=== PATIENT | female | born 1945 | race Caucasian/White ===

== ENCOUNTER 2018-12-10 18:43 | Inpatient (IN) ==
--- NOTE | 2018-12-10 20:08 | Diag Imaging Result Doc PS360 ---
EXAM: CHEST-2 VIEWS 12/10/2018 HISTORY: productive cough copd TECHNIQUE: PA and lateral chest COMMENT: There are bilaterally calcified breast implants. There are calcified aorticopulmonary window nodes. There is no evidence of acute cardiac or pulmonary disease and compared to 07/31/2018 there has been no significant change. IMPRESSION: No evidence of acute disease. Electronically signed by Jamshid Rosales 12/10/2018 8:05 PM
[2018-12-10] MEDS ORDERED: SOLU-MEDROL IV ONE (20:35)
[2018-12-10] MEDS ORDERED: DUONEB (A & A) INH ONE (20:35)
[2018-12-10] MEDS ORDERED: LEVAQUIN 750 MG/D5W 750 MG/150 ML IVPB IV ONE (20:36)
--- NOTE | 2018-12-10 20:38 | PROVIDER DOCUMENTATION ---
HPI-Respiratory General - General Chief Complaint: Cough Stated Complaint: SOB Time Seen by Provider: 12/10/18 20:24 Source: patient, family Allergies/Adverse Reactions: Patient Allergies Allergy/AdvReac Type Severity Reaction Status Date / Time cefuroxime axetil * Allergy Severe ANAPHYLAXIS Verified 05/10/17 21:58 [From Ceftin] codeine Allergy Severe ANAPHYLAXIS Verified 05/10/17 21:58 Penicillins Allergy ANAPHYLAXIS Verified 12/01/17 19:49 Home Medications: Home Medication List Medication Instructions Recorded Confirmed Last Taken Type Clonazepam [Klonopin] 0.5 mg PO Q8H PRN PRN 10/22/13 05/10/17 05/10/17 History Fluticasone/Salmeterol [Advair 1 puff INH BID 10/22/13 05/10/17 05/10/17 History 500-50 Diskus] Albuterol Sulfate Inhaler 8 gm INH PRN PRN 04/16/14 05/10/17 05/10/17 History [Ventolin Hfa] Trazodone [Desyrel] 100 mg PO QHS 04/16/14 05/10/17 05/10/17 History Oxycodone HCl [Oxycontin] 40 mg PO BID 06/17/15 05/10/17 05/10/17 History Baicalin/Catechin [Limbrel 500 mg 500 mg PO BID 09/13/15 05/10/17 05/10/17 History Capsule] Fluoxetine HCl [Prozac] 40 mg PO DAILY 09/13/15 05/10/17 05/10/17 History Furosemide [Lasix] 40 mg PO DAILY 09/13/15 05/10/17 05/10/17 History Potassium Chloride 1 tab PO DAILY 09/13/15 05/10/17 05/10/17 History Budesonide [Pulmicort] 0.5 mg INH RTBID #28 neb 05/01/17 05/10/17 05/10/17 Rx Levofloxacin [Levaquin] 750 mg PO DAILY #7 tablet 05/01/17 05/10/17 05/10/17 Rx Doxycycline 100 mg PO BID #20 tablet 05/10/17 Unknown Rx Wheelchair 1 ea DIRECTED #1 ea 12/01/17 Unknown Rx - History of Present Illness-Resp Nature of Presenting Problem: reports pt has had sob and right chest pain for 4 days now. and constant cough. she has taken all the copd medicine which has not relievign her symptoms. rightsided chest pain persists. says she has productive cough Review of Systems - Adult - REVIEW OF SYSTEMS - ADULT Constitutional: reports: no symptoms reported Eyes: reports: no symptoms reported Ears, Nose, Mouth & Throat: reports: no symptoms reported Cardiovascular: reports: no symptoms reported Respiratory: reports: no symptoms reported Gastrointestinal: reports: no symptoms reported Genitourinary: reports: no symptoms reported Musculoskeletal: reports: no symptoms reported Integumentary: reports: no symptoms reported Neurological: reports: no symptoms reported Psychiatric: reports: no symptoms reported Endocrine: reports: no symptoms reported Hematologic/Lymphatic: reports: no symptoms reported Allergic/Immunologic: reports: no symptoms reported All Other Systems: Reviewed and Negative Past History - Adult - PAST MEDICAL HISTORY-ADULT Review of Records: reports: Old Records Reviewed, Nursing Assessment Review, Medications Reviewed, Social history reviewed & non-contributory. Major Childhood Illnesses: reports: denies history Cardiovascular: reports: HTN Respiratory: reports: asthma, COPD, sleep apnea Gastrointestinal: reports: GERD Obstetrical/Gynecological: reports: denies history Genitourinary: reports: denies history Musculoskeletal: reports: denies history Neurological: reports: headaches/migraines Psychiatric: reports: depression Endocrine/Immune: reports: denies history Other Conditions: reports: denies history - PRIOR SURGERIES/PROCEDURES Surgical/Procedure History: reports: hysterectomy, BTL, joint replacement - IMMUNIZATION STATUS Childhood Immunizations: See Nurse Assessment Flu Vaccine: See Nurse Assessment - FAMILY HISTORY Family History: HTN - SOCIAL HISTORY Smoking: quit greater than 1 year Substance Use: none/never Alcohol Use Frequency: never Living Situation: family Physical Exam-General - PHYSICAL EXAM-ADULT Initial Vital Signs Reviewed: Yes - CONSTITUTIONAL General Appearance: appears well, alert, no apparent distress - EYES Eyes: PERRL/EOMI, pink conjunctivae - HEAD, EARS, NOSE, MOUTH & THROAT HENMT: normocephalic/atraumatic, moist mucous membranes, normal ENT inspection - NECK Neck: non-tender, full range of motion - RESPIRATORY Respiratory: chest non-tender, crackles, wheezing, other (coughing) - CARDIOVASCULAR Cardiovascular: normal peripheral pulses, regular rate, rhythm, no edema - GASTROINTESTINAL (ABDOMEN) Abdominal Exam: normal bowel sounds, non tender, soft - MUSCULOSKELETAL Back Exam: normal inspection, no CVA tenderness, no vertebral tenderness Extremity: normal range of motion, non-tender, normal gait - SKIN Integumentary: normal color, normal turgor, warm/dry - NEUROLOGIC Neurologic: grossly normal, no motor/sensory deficits - PSYCHIATRIC Psych/Mental Status: normal mood/affect, normal thought content, normal thought process, oriented x 3 - HEART Score HEART Score: History: Slightly Suspicious HEART Score: ECG: Non-Specific Repolarization Disturbance/LBBB/PM HEART Score: Age: > or = 65 Years HEART Score: Risk Factors for Atherosclerotic Disease: > or = 3 Risk Factors or History of Atherosclerotic Disease HEART Score: Troponin: < or = Normal Limit Total HEART Score:: 5 Progress - PLAN OF CARE/RESULTS Progress/Plan/Lab Results: Vital Signs - 8 hr 12/10/18 18:47 12/10/18 20:56 12/10/18 21:44 Temperature 98.6 F 97.6 F Pulse Rate 81 80 73 Respiratory Rate 18 16 20 Blood Pressure 131/59 176/106 O2 Sat by Pulse Oximetry 97 97 100 Laboratory Results - last 24 hr 12/10/18 12/10/18 12/10/18 20:50 20:50 20:50 WBC 9.56 RBC 4.25 Hgb 10.7 L Hct 34.6 L MCV 81.4 MCH 25.2 L MCHC 30.9 L RDW Std Deviation 16.1 H Plt Count 263 MPV 10.3 Immature Gran % (Auto) 0.2 Neut % (Auto) 61.3 Lymph % (Auto) 28.3 [place] % (Auto) 9.3 Eos % (Auto) 0.6 Baso % (Auto) 0.3 Immature Gran # (Auto) 0.02 Neut # (Auto) 5.85 Lymph # (Auto) 2.71 [place] # (Auto) 0.89 H Eos # (Auto) 0.06 Baso # (Auto) 0.03 PT INR PTT (Actin FS) Specimen Type Sample Site pH pCO2 pO2 HCO3 Base Excess Oxyhemoglobin ABG O2 Sat (Calculated) ABG O2 Saturation ABG Carboxyhemoglobin ABG Methemoglobin Lewis Test A-a O2 Difference Total Hemoglobin Lactate Blood Gas Modality FiO2 % Sodium 138 Potassium 3.4 L Chloride 100 Carbon Dioxide 27 Anion Gap 11 BUN 11 Creatinine 0.7 Estimated GFR/1.73 m2 > 60 BUN/Creatinine Ratio 16 Glucose 150 H Calculated Osmolality 278 Calcium 8.3 L Total Bilirubin 0.20 AST 14 ALT 10 Alkaline Phosphatase 101 Troponin T < 0.010 Vto-P-Vlbetslmsvx Pept Total Protein 6.8 Albumin 3.9 Globulin 3.0 Albumin/Globulin Ratio 1.0 12/10/18 12/10/18 12/10/18 20:50 20:50 20:55 WBC RBC Hgb Hct MCV MCH MCHC RDW Std Deviation Plt Count MPV Immature Gran % (Auto) Neut % (Auto) Lymph % (Auto) [place] % (Auto) Eos % (Auto) Baso % (Auto) Immature Gran # (Auto) Neut # (Auto) Lymph # (Auto) [place] # (Auto) Eos # (Auto) Baso # (Auto) PT 13.6 INR 0.99 PTT (Actin FS) 32.8 Specimen Type ARTERIAL Sample Site L RADIAL pH 7.46 H pCO2 39 pO2 74 HCO3 27.7 H Base Excess 3.6 H Oxyhemoglobin 94.6 L ABG O2 Sat (Calculated) 14.8 L ABG O2 Saturation 96.9 ABG Carboxyhemoglobin 1.60 ABG Methemoglobin 0.8 Lewis Test YES A-a O2 Difference 27.0 Total Hemoglobin 11.1 L Lactate 1.50 Blood Gas Modality ROOM AIR FiO2 % 21.0 Sodium Potassium Chloride Carbon Dioxide Anion Gap BUN Creatinine Estimated GFR/1.73 m2 BUN/Creatinine Ratio Glucose Calculated Osmolality Calcium Total Bilirubin AST ALT Alkaline Phosphatase Troponin T Umu-G-Hoornfatibv Pept 180 Total Protein Albumin Globulin Albumin/Globulin Ratio Orders Category Date Time Status Cardiac Monitoring DIRECTED Care 12/10/18 20:40 Active Oxygen Therapy- ED Nursing DIRECTED Care 12/10/18 20:40 Active Saline Loc NOW Care 12/10/18 20:40 Active CHEST-2 VIEWS [RAD] Stat Exams 12/10/18 18:[address] ANGIOGRM PULMONARY ARTERIES [CT] Stat Exams 12/10/18 23:31 Ordered ABG [RESP] Routine Lab 12/10/18 20:55 Completed CBC WITH DIFF [HEME] Stat Lab 12/10/18 20:50 Completed CMP [COMPREHENSIVE METABOLIC PANEL] [CHEM] Stat Lab 12/10/18 20:50 Completed PRO B-NATRIURETIC PEPTIDE Stat Lab 12/10/18 20:50 Completed PROTIME WITH INR [COAG] Stat Lab 12/10/18 20:50 Completed PTT [COAG] Stat Lab 12/10/18 20:50 Completed TROPONIN T Stat Lab 12/10/18 20:50 Completed TROPONIN T Stat Lab 12/10/18 23:23 Ordered Albuterol 2.5MG/Ipratrop 0.5MG [Duoneb (A & A)] Med 12/10/18 20:35 Discontinued 3 ml INH NOW ONE Benzonatate [Tessalon] Med 12/10/18 22:59 Discontinued 100 mg PO NOW ONE Levofloxacin 750 mg/D5w [Levaquin 750 mg/D5w] Med 12/10/18 20:36 Discontinued 750 mg in 150 ml IV NOW Methylprednisolone Sod Succ [Solu-Medrol] Med 12/10/18 20:35 Discontinued 125 mg IV NOW ONE Aerosol Treatments Routine Oth 12/10/18 20:36 Completed Aerosol Treatments Stat Oth 12/10/18 20:36 Completed CP/SOB/Palp >45 yrs of Age Stat Oth 12/10/18 20:39 Ordered EKG [EKG] Stat Ther 12/10/18 20:37 Draft EKG [EKG] Stat Ther 12/10/18 23:23 Ordered Result Diagrams: 12/10/18 20:50 12/10/18 20:50 - REASSESSMENT Reassessment #1 Time Reassessed: 23:17 (s/p duoneb, steroid, abx. lungs field wheezing and crackles. pt still complaint of right sided chest pain. ) Status: unchanged - CONSULTS/PCP/HOSPITALIST Notification #1 *Consult/PCP/Hospitalist*: Dr. Lewis Time Discussed: 23:33 (continue with duoneb q4) Consult Disposition: Admit Departure - Departure Date of Disposition Decision: 12/10/18 Time of Disposition Decision: 23:20 DIAGNOSIS: COPD exacerbation, Right-sided chest pain Disposition: ADMITTED INPATIENT 09 Certified Medical Emergency: Emergent Condition: Stable Referrals and Follow-Ups: Manuel Lewis MD [Primary Care Provider] - - Critical Care Note This patient required my direct & personal management of CC.: No Attestation - Physician/ CATHY Attestation The physician spent face to face time with patient:: Yes Advanced Practice Provider documentation review:: Supervising physician onsite and consulted in the evaluation and care of this patient. The physician did have a face to face encounter with the patient.
[2018-12-10 21:07] LABS: BE 3.6 mmoll (-3.0-3.0); BLOOD TYPE ARTERIAL; HCO3-(ACT) 27.7 mmoll (20.0-26.0); METHB 0.8 % (0.0-1.5); O2(CT) 14.8 mL/dL (15.0-23.0); O2HB 94.6 % (95.0-99.0); PCO2(98.6) 39 mmHg (35-45); PO2(98.6) 74 mmHg (60-100); SAMPLE BLOOD; SAO2 96.9 % (95.0-100.0); THB 11.1 g/dL (11.5-17.4); pH(98.6) 7.46 (7.35-7.45)
[2018-12-10 21:09] LABS: ALLEN TEST YES; MODALITY ROOM AIR
[2018-12-10 21:12] LABS: BASO# 0.03 X1000 (0.0-0.2); BASO% 0.3 % (0.0-0.8); EOS# 0.06 X1000 (0.0-0.7); EOS% 0.6 % (0.0-10.0); HEMATOCRIT 34.6 % (37.0-47.0); HEMOGLOBIN 10.7 g/dL (12.0-16.0); IMM GRAN# 0.02 X1000 (0.0-0.04); IMM GRAN% 0.2 % (0.0-0.5); LYMPH# 2.71 X1000 (1.2-3.4); LYMPH% 28.3 % (20.5-51.1); MCH 25.2 PG (27-31); MCHC 30.9 g/dL (33-37); MCV 81.4 FL (81-99); MONO# 0.89 X1000 (0.11-0.59); MONO% 9.3 % (1.7-9.3); MPV 10.3 FL (7.4-10.4); NEUT# 5.85 X1000 (1.4-6.5); NEUT% 61.3 % (42.2-75.2); PLT 263 X1000 (130-400); RBC 4.25 XMIL (4.2-5.4); RDW 16.1 % (11.5-14.5); WBC 9.56 X1000 (4.8-10.8)
[2018-12-10 21:26] LABS: AGAP 11; ALBUMIN 3.9 g/dL (3.5-5.0); ALKALINE PHOSPHATASE 101 U/L (32-104); BUN 11 mg/dL (8-22); CALCIUM 8.3 mg/dL (8.8-10.2); CHLORIDE 100 mmol/L (98-107); COSMO 278; CREATININE 0.7 mg/dL (0.5-0.9); ESTIMATED GFR > 60; GLUCOSE 150 mg/dL (70-104); GOT 14 U/L (10-30); GPT 10 U/L (10-36); POTASSIUM 3.4 mmol/L (3.5-5.1); SODIUM 138 mmol/L (136-145); TCO2 27 mmol/L (25-35); TOTAL PROTEIN 6.8 g/dL (6.3-8.3)
[2018-12-10 21:31] LABS: INR 0.99; PROTIME 13.6 Seconds (11.0-16.0)
[2018-12-10 21:32] LABS: PTT 32.8 Seconds (22.3-41.8)
--- NOTE | 2018-12-10 22:41 | EKG Report ---
Test Performed on : 12/10/2018 10:00:52 PM Test Reason : CP Blood Pressure : / mmHG Vent. Rate : 073 BPM Atrial Rate : 073 BPM P-R Int : 232 ms QRS Dur : 108 ms QT Int : 410 ms P-R-T Axes : 013 004 024 degrees QTc Int : 451 ms Sinus rhythm. with 1st degree AV block. Otherwise normal ECG No previous ECGs available Unconfirmed Result
[2018-12-10] MEDS ORDERED: TESSALON PO ONE (22:59)
--- NOTE | 2018-12-11 01:35 | ED EKG INTERP ---
This chart was entered by Joanne Kessler Scribe, acting as scribe for Uri De Los Santos MD. EKG Interpretation - EKG Time of EKG reading by physician:: 22:26 EKG Read and Signed by:: Uri De Los Santos EKG Interpretation (*Must complete 3 of following elements*): Normal Rate: 73 Rhythm: sinus rhythm with 1st degree AV block, otherwise normal EKG [place]: normal CT Interval: normal ST Wave: normal Attestation - Physician/ CATHY Attestation Patient care was provided by Advanced Practice Provider:: No The physician spent face to face time with patient:: No Advanced Practice Provider documentation review:: Supervising physician onsite and consulted in the evaluation and care of this patient. The physician did not have a face to face encounter with the patient. This chart was documented by the indicated scribe, (Joanne Kessler Scribe) and accurately reflects the services I performed and decisions made by me, Uri De Los Santos MD, as attested by the provider's signature.
--- NOTE | 2018-12-11 06:08 | Diag Imaging Result Doc PS360 ---
EXAM: CT ANGIOGRM PULMONARY ARTERIES HISTORY: sob TECHNIQUE: CT chest with intravenous contrast. Pulmonary arterial protocol with MIP images. COMPARISON: 05/10/2017 FINDINGS: Trace right pleural fluid. No cardiomegaly. No thoracic aortic aneurysm or dissection. Moderate atherosclerosis. Normal opacification of the pulmonary arteries and their major branches. There are small mediastinal nodes. No consolidation. Scattered tree-in-bud infiltrates primarily in the lower lobes. There is bronchial wall thickening. There are bilateral breast implants. A small hiatal hernia is present. IMPRESSION: 1.No pulmonary emboli 2.Bronchial wall thickening with scattered tree-in-bud infiltrates most pronounced in the lower lobes This exam was performed using automated exposure control, adjustment of mA or kV according to patient size, and/or use of iterative reconstruction technique. Electronically signed by Benigno Clark 12/11/2018 6:06 AM
[2018-12-11] MEDS: TYLENOL PO PRN (10:31)
[2018-12-11] MEDS: VENTOLIN HFA INH PRN ×3 (11:40→18:44)
[2018-12-11] MEDS: MS CONTIN PO SCH ×2 (12:12→20:30)
[2018-12-11] MEDS: NEURONTIN PO SCH ×2 (12:13→13:17)
[2018-12-11] MEDS ORDERED: PRILOSEC PO ONE (12:45)
[2018-12-11] MEDS ORDERED: PROZAC PO ONE (12:45)
[2018-12-11] MEDS ORDERED: LEVAQUIN PO ONE (13:34)
[2018-12-11] MEDS: ADVAIR 500/50 DISKUS INH SCH (18:30)
[2018-12-11] MEDS: PULMICORT INH SCH (18:44)
[2018-12-11] MEDS: BACTROBAN OINTMENT TOP SCH (20:30)
[2018-12-11] MEDS: OXY IR PO SCH (20:30)
[2018-12-11] MEDS ORDERED: NEURONTIN PO SCH (21:00)
[2018-12-11] MEDS ORDERED: DESYREL PO SCH (21:00)
[2018-12-11] MEDS ORDERED: BENADRYL PO SCH (21:00)
[2018-12-11 21:48] LABS: BILIRUBIN URINE NEGATIVE (NEGATIVE); BLOOD URINE 1+ (NEGATIVE); CLARITY CLEAR (CLEAR); COLOR YELLOW; GLUCOSE URINE NEGATIVE (NEGATIVE); KETONE URINE NEGATIVE (NEGATIVE); LEUKOCYTES URINE NEGATIVE (NEGATIVE); NITRITE URINE NEGATIVE (NEGATIVE); PH URINE 6.5; PROTEIN URINE NEGATIVE (NEGATIVE); SP GRAVITY URINE 1.015; UROBILINOGEN URINE NORMAL
[2018-12-11 22:24] LABS: URINE SOURCE CLEAN CATCH
[2018-12-11 22:26] LABS: URINE BACTERIA 1+ /HFP; URINE CAST NONE SEEN /LPF; URINE CRYSTAL CA OXALATE PRESENT /HPF; URINE EPITHELIAL CELLS >10 /HPF (<10); URINE RBC <10 /HPF (<10); URINE YEAST NONE SEEN /HPF
[2018-12-12] MEDS: TYLENOL PO PRN (04:34)
[2018-12-12] MEDS ORDERED: TUMS EXTRA STRENGTH PO PRN (04:52)
[2018-12-12] MEDS: NEURONTIN PO SCH ×2 (06:25→16:58)
[2018-12-12] MEDS ORDERED: PRILOSEC PO SCH (07:00)
[2018-12-12] MEDS: ADVAIR 500/50 DISKUS INH SCH (08:01)
[2018-12-12] MEDS: VENTOLIN HFA INH PRN (08:01)
[2018-12-12] MEDS ORDERED: LINZESS PO SCH (09:00)
[2018-12-12] MEDS ORDERED: PROZAC PO SCH (09:00)
[2018-12-12] MEDS ORDERED: COZAAR PO SCH (09:00)
[2018-12-12] MEDS: MS CONTIN PO SCH (09:20)
[2018-12-12] MEDS: OXY IR PO SCH (09:20)
[2018-12-12] MEDS: PULMICORT INH SCH (11:32)
[2018-12-12 11:46] VITALS: BP 153/71
[2018-12-12] MEDS: BACTROBAN OINTMENT TOP SCH (16:57)
--- NOTE | 2018-12-31 01:24 | PROGRESS NOTE ---
DATE: 12/11/2018 She was admitted for dyspnea. She was admitted with room air blood gases pH 7.46, PCO2 of 39, PO2 of 74, with wheezing and coughing. She ended up getting a CTA and a chest x-ray yesterday. Showed calcified aortic pulmonary window nodes. No evidence of acute cardiac or pulmonary disease. No significant change. No evidence of disease. She had a pulmonary arteriogram done late yesterday which showed no pulmonary emboli, bronchial wall thickening with scattered tree-in- bud infiltrates most pronounced in the lower lobes. Her vital signs 12/11/2018: Afebrile, pulse 74, respiratory rate 17, BP 183/72, O2 saturation was 95 on room air. She had a urine that had no pending growth so she was continued on her routine medications which include losartan 100 daily, Linzess p.r.n., calcium carbonate, Prozac 40, OxyContin she gets from a pain clinic 15 b.i.d., gabapentin 300 at bedtime pain clinic medicine, 100 mg of trazodone at bedtime, 25 of Benadryl at bedtime. She is placed on levofloxacin 750 daily, omeprazole 40, Prozac 40, morphine ER 300. She is given albuterol inhalers, benzonatate. She was given a 1-time dose of methylprednisolone. She is still wheezing a little bit but seems to be improved. cc: Manuel Lewis MD MTDD
--- NOTE | 2018-12-31 04:05 | HISTORY AND PHYSICAL ---
HISTORY OF PRESENT ILLNESS: She is a 73-year-old female who I see that has asthma and COPD who presented to the ER complaining of a cough and shortness of breath where she was seen by the ER physician. The patient reports she has had shortness of breath and right-sided chest pain, very atypical, for 4 days before now, and a constant cough. She has been taking all kinds of COPD medicines which have not relieved her symptoms. Right chest pains persist. She says she has had a productive cough. In the ER she had a 98.6 temperature, pulse 81, respiratory rate 18, BP 131/59, O2 saturation of 97. Blood was drawn. She had a white count of 9560, her hematocrit was 34.6, platelet count was 263,000, differential was unremarkable. She had troponin which was not elevated. CK was pending. Sodium was 138, potassium 3.4, chloride 100, CO2 27, BUN 11, creatinine 0.7, GFR greater than 60. BUN and creatinine ratio was 16. Glucose 150. Calculated osmolality 270, calcium 8.3, total bilirubin 0.2, AST 14, ALT 10, alkaline phosphatase 101, total protein 6.8-6.9, albumin globulin 3. INR was 0.99, PT was 32.8. Blood gases on room air: pH 7.460, CO2 39, pO2 74, 126 carboxyhemoglobin. ProBNP was 180. She had a saline lock placed and labs ordered, chest x-ray and subsequently a CT angiogram of the pulmonary arteries was done. She was given albuterol treatments. Added Levaquin 750. They also gave her Solu-Medrol 125. PAST MEDICAL SURGERY: She has had a previous hysterectomy, bilateral tubal ligation, joint replacement of the knee. FAMILY HISTORY: Psych disorders and hypertension. SOCIAL HISTORY: Long-standing smoker, stopped a year ago. She says she has no substance use, but regularly uses narcotics. PAST MEDICAL HISTORY: She has a history of hypertension, no significant heart failure, no ischemic heart disease, no valvular heart disease, no electrical heart disease. REVIEW OF SYSTEMS: Respiratory: Asthma, COPD, sleep apnea and ex-smoker. Neurologic: No headaches, migraines, strokes. Eyes: No change in her acuity or visual irritation. Nares: Patent. GI: She has had reflux, but no significant liver disease, no hepatitis, no GI bleed, no melena, no hematochezia. : She has had occasional UTIs, but no significant history of any issues with her bladder and kidneys. Musculoskeletal: She has had some degenerative arthritis and chronic back pain. She is a very large woman. Psychiatric: Depression. Sometimes she had some issues to suggest a schizophrenic type illness. Endocrine: No diabetes, no thyroid problems. PHYSICAL EXAMINATION: VITAL SIGNS: At the time of admission her temperature was 98.6, pulse was 81, respiratory rate was 18, BP 131/59, O2 saturation was 97. HEENT: Head was normocephalic. She had some nonspecific rashes on her body. Eyes were PERRL. EOMs intact. SC clear. Fundi benign. Nares patent. Oropharynx negative. NECK: Supple without any carotid bruits, without lymphadenopathy or thyromegaly. CHEST: She had diminished breath sounds throughout with wheezing, a little bit tachypneic. CARDIOVASCULAR: She had a regular rate and rhythm; no murmur, gallops, clicks or rubs. ABDOMEN: Soft, obese, pendulous, nontender. No appreciated organomegaly. MUSCULOSKELETAL/BACK: Tender in her lower lumbar area. No CVA tenderness. No cervical or thoracic tenderness. SKIN: Normal color, normal turgor with probably some issues from picking all of the time. NEUROLOGIC: No focal neurological deficit. PSYCH: She is oriented x3, a bit anxious and a bit histrionic. PLAN: We will evaluate her for her shortness of breath. Do some serial cardiac enzymes. Treat her respiratory status. cc: Manuel Lewis MD
--- NOTE | 2018-12-31 05:53 | DISCHARGE SUMMARY ---
ADMISSION DATE: 12/11/2018 DISCHARGE DATE: 12/12/2018 A 73-year-old female that is a former smoker with COPD, asthma, hypertension, chronic pain syndrome. Came into the emergency room complaining of shortness of breath. Chest x-ray was unrevealing. They did a CT on her and it showed tree-in-bud abnormalities, no pulmonary embolism, no other significant pathology. She is tentatively set up to see a home health billing specialist. We will let him advise her as to what treatment to pursue on this tree-in-bud injury, but she seems to be doing fine. We let her travel day of admission and she will be getting some prednisone 10 mg b.i.d. 5 days. Continue her Linzess diet, Benadryl, Prilosec, losartan 100 mg, budesonide, albuterol inhaler, trazodone, fluticasone. Pain medicines, oxymorphone, Gabapentin, fluoxetine are all from her pain doctor. We are sending her to the specialist. cc: Manuel Lewis MD
== END 2018-12-12 16:21 | disposition home or self-care (01) | DRG 192 ==
LOC: P.ED 18:43 → P.MEDSURG 12-11 02:08
PROVIDERS: ADMIT Internal Medicine; ATTEND Internal Medicine
CPT/HCPCS: 36415; 71020; 71046; 71275; 80053; 81001; 82805; 83880; 84484; 85025; 85610; 85730; 86480; 86606; 87088; 93005; 94640; 94761; 96365; 96366; 96375; 99285; A9270; J1956; J2930; Q9967